=== PATIENT | female | born 1990 | race Two or more races ===

== ENCOUNTER 2021-10-11 02:57 | Inpatient (IN) | payer OTHER ==
[2021-10-12] MEDS ORDERED: LORATADINE10 MG (11:26)
[2021-10-12] MEDS ORDERED: MONTELUKAST SOD10 MG (11:26)
[2021-10-12] MEDS ORDERED: PROAIR HFA8.5 GM (11:26)
== END 2021-10-13 15:35 | disposition home or self-care (01) | DRG 807 ==
LOC: OB/GYN 02:57 → LDR 02:57 → OB/GYN 19:01
PROVIDERS: ADMIT Obstetrics & Gynecology; ATTEND Obstetrics & Gynecology
PROC: 10E0XZZ Delivery of Products of Conception, External Approach (ICD-10-PCS; principal; 2021-10-11)
PROC: 4A1HXCZ Monitoring of Products of Conception, Cardiac Rate, External Approach (ICD-10-PCS; 2021-10-11)
PROC: 0HQ9XZZ Repair Perineum Skin, External Approach (ICD-10-PCS; 2021-10-11)
PROC: 0UQMXZZ Repair Vulva, External Approach (ICD-10-PCS; 2021-10-11)
DX: O70.0 First degree perineal laceration during delivery (principal); O71.82 Other specified trauma to perineum and vulva; O99.820 Streptococcus B carrier state complicating pregnancy; Z3A.40 40 weeks gestation of pregnancy; Z37.0 Single live birth; Z20.822 Contact with and (suspected) exposure to COVID-19